=== PATIENT | male | born 1960 | race Caucasian/White ===

== ENCOUNTER 2020-08-06 18:23 | Emergency (ER) | payer MEDICAID ==
[~2020-08-06] VITALS: Ht 175.3 cm; Wt 109.0 kg
[2020-08-06] MEDS: VISCOUS LIDOCAINE 2% 15 ML UDC PO ONE (19:30)
[2020-08-06] MEDS: ASPIRIN 81MG TABLET PO ONE (19:30)
[2020-08-06] MEDS: MAGNESIUM/ALUMINUM HYDROXIDE/SIMETHICONE 30ML UDC PO ONE (19:30)
[2020-08-06 19:50] LABS: BASOPHILS % 0.9 % (0.0-2.0); EOSINOPHILS % 0.3 % (0.0-5.0); HEMATOCRIT. 37.7 % (42.0-52.0); HEMOGLOBIN. 12.4 g/dL (14.0-18.0); LYMPHOCYTES % 33.9 % (20.0-50.0); MEAN CORPUSCULAR HEMOGLOBIN 28.8 pg (28.0-32.0); MEAN CORPUSCULAR VOLUME 87.3 fL (80.0-94.0); MONOCYTES % 5.5 % (2.0-8.0); NEUTROPHILS % 59.4 % (40.0-76.0); PLATELET 284 x1000/uL (130-400); RED BLOOD CELL COUNT 4.32 mill/uL (4.7-6.1); RED CELL DISTRIBUTION WIDTH 16.5 % (11.6-14.6)
[2020-08-06 19:54] LABS: CHLORIDE 100 mEq/L (98-107)
[2020-08-06 22:15] VITALS: BP 139/80
[2020-08-06] MEDS: KETOROLAC 30MG/ML VIAL IV ONE (22:15)
== END 2020-08-06 23:57 | disposition home or self-care (01) ==
LOC: ER 18:23
DX: R07.89 Other chest pain (principal); E11.9 Type 2 diabetes mellitus without complications
CPT/HCPCS: 36415; 71045; 80053; 83880; 84484; 85025; 93005; 96374; 99285; J1885; Z7610